=== PATIENT | female | born 1990 | race Caucasian/White ===

== ENCOUNTER 2017-03-10 17:43 | Emergency (ER) | payer OTHER ==
[~2017-03-10] VITALS: Ht 172.7 cm; Wt 97.2 kg
[~2017-03-10 17:43] MED LIST: ADVIL,NUPRIN,M200 MG PO; ATARAX,VISTARIL25 MG PO; CHANTIX1 MG PO; FAT BURNER PO; FISH OIL500 MG PO; HYDROXYZINE HCL25 MG PO; L-LYSINE500 M1 PO; MOTRIN800 MG PO; NAPROSYN500 MG PO; NOHOMEMEDS; PERCOCET 5/31 TABLET PO; PRENATAL ONE T1 EACH PO; PRENATAL TABLE1 EAC3 PO; SERTRALINE HCL50 MG PO; TUMS500 MG PO; TYLENOL COLD H1 EAC5 PO; TYLENOL EXTRA500 MG PO; TYLENOL PM1 CAPLET PO; VITAMIN D31000 UNI2 PO; ZOVIRAX400 MG PO
[2017-03-10 19:07] LABS: ADD MIUA? NO; BILIRUBIN NEGATIVE; BLOOD NEGATIVE; COLOR STRAW ((YELLOW)); GLUCOSE (STRIP) NEGATIVE; KETONES NEGATIVE; LEUKOCYTES NEGATIVE; NITRITE NEGATIVE; PROTEIN (STRIP) NEGATIVE; SPECIFIC GRAVITY 1.008 (1.000-1.030); UCUL ADDED? NO; UROBILINOGEN 0.2 MG/DL (0.2-1.0)
[2017-03-10 19:10] LABS: HEMATOCRIT 44.1 % (36.0-46.0); MCH 29.7 PG (29.0-34.0); MCHC 33.8 G/DL (30.0-36.0); MCV 87.8 FL (83-99); MEAN PLAT.VOLUME 9.7 uM^3 (9.5-12.4); PLATELET COUNT 287 K/uL (156-360); RBC DIS.WIDTH-SD 38.9 % (39-53); RED BLOOD COUNT 5.02 M/uL (3.80-5.20); WHITE BLOOD COUNT 7.2 K/uL (4.1-10.2)
[2017-03-10 19:28] LABS: CHLORIDE 108 mEq/L (99-109); POTASSIUM 4.2 mEq/L (3.7-5.4); SODIUM 139 mEq/L (136-147)
[2017-03-10 19:30] LABS: GLUCOSE 94 mg/dL (70-99)
[2017-03-10 19:32] LABS: ANION GAP 9 MEQ/L (2-14); TOTAL BILIRUBIN 0.4 mg/dL (0.0-1.0)
[2017-03-10 19:34] LABS: ALKALINE PHOSPHATASE 58 IU/L (3-129); GFR ESTIMATE (CALCULATED) > 59 mL/min/
[2017-03-10 19:35] LABS: UREA NITROGEN (BUN) 16 mg/dL (9-23)
[2017-03-10 19:37] LABS: LIPASE 21 U/L (1.0-51.0)
[2017-03-10 19:39] LABS: ERTH.SED.RATE 4 MM/HR (0-20)
[2017-03-10 19:43] LABS: QUANTITATIVE HCG < 4.0 MIU/ML
[2017-03-10 20:34] LABS: INTERNAL CONTROL VALID? YES; MONOSPOT (MONONUCLEOSIS SEROL) NEGATIVE
[2017-03-10 21:19] VITALS: BP 118/79
[2017-03-11 09:56] LABS: LYME DISEASE SEROLOGY SCREEN NEGATIVE (NEGATIVE)
[2017-03-11 11:58] LABS: ANTI-NUCLEAR AB SCRN/RFLX(ANA) NONREACTIVE (NONREACTIVE)
== END 2017-03-10 21:20 | disposition home or self-care (01) ==
LOC: EXP 17:43 → EME 17:43 → EXP 21:20
PROVIDERS: Physician Assistant
DX: R53.83 Other fatigue (principal); R51 Headache; M79.1 Myalgia; R10.9 Unspecified abdominal pain; Z87.442 Personal history of urinary calculi; F17.200 Nicotine dependence, unspecified, uncomplicated
CPT/HCPCS: 70450; 76705; 80053; 81003; 83690; 84443; 84702; 85027; 85651; 86038; 86308; 86618; 99281; 99284

== ENCOUNTER 2017-12-04 19:55 | Observation (INO) | payer OTHER ==
[~2017-12-04] VITALS: Ht 175.3 cm; Wt 99.9 kg
[2017-12-04 20:48] LABS: HEMATOCRIT 43.4 % (36.0-46.0); HEMOGLOBIN 15.3 G/DL (11.9-15.5); MCH 30.3 PG (29.0-34.0); MCHC 35.3 G/DL (30.0-36.0); MCV 85.9 FL (83-99); RBC DIS.WIDTH-CV 12.4 % (11.8-14.6); RBC DIS.WIDTH-SD 38.2 % (39-53); RED BLOOD COUNT 5.05 M/uL (3.80-5.20); WHITE BLOOD COUNT 6.8 K/uL (4.1-10.2)
[2017-12-04 20:55] LABS: ALBUMIN 4.6 g/dL (3.2-4.8); CHLORIDE 107 mEq/L (99-109); POTASSIUM 3.8 mEq/L (3.7-5.4); SODIUM 142 mEq/L (136-147)
[2017-12-04 20:57] LABS: GLUCOSE 103 mg/dL (70-99); TOTAL PROTEIN 7.6 g/dL (6.4-8.3)
[2017-12-04 21:01] LABS: ALKALINE PHOSPHATASE 76 IU/L (3-129); CREATININE 0.8 mg/dL (0.6-1.3); GFR ESTIMATE (CALCULATED) > 59 mL/min/
[2017-12-04 21:02] LABS: UREA NITROGEN (BUN) 10 mg/dL (9-23)
[2017-12-04 21:03] LABS: AST (GOT) 19 IU/L (2-34)
[2017-12-04 21:04] LABS: ALT (GPT) 22 IU/L (3-49)
[2017-12-04 21:11] LABS: FIBRINOGEN 254 mg/dL (150-450)
[2017-12-04 21:21] LABS: IMM.PLATELET FRACTION 26.8 (1-7); PLAT.SUFFICIENCY VERY DECREASED; PLATELET COUNT 6 K/uL (156-360)
[2017-12-04 21:27] LABS: TOTAL BILIRUBIN 0.7 mg/dL (0.0-1.0)
[2017-12-04 22:26] LABS: HEMATOCRIT 43.3 % (36.0-46.0); HEMOGLOBIN 15.2 G/DL (11.9-15.5); MCH 30.3 PG (29.0-34.0); MCHC 35.1 G/DL (30.0-36.0); MCV 86.4 FL (83-99); RBC DIS.WIDTH-CV 12.5 % (11.8-14.6); RBC DIS.WIDTH-SD 38.9 % (39-53); RED BLOOD COUNT 5.01 M/uL (3.80-5.20); WHITE BLOOD COUNT 6.6 K/uL (4.1-10.2)
[2017-12-04 22:40] LABS: ABS NEUTROPHIL COUNT 3.3; ANISOCYTOSIS 1+; ATYPICAL LYMPHOCYTE 5.3 %; EOSINOPHIL ABS CT 0.3; EOSINOPHILS 4.4 % (0-5.0); IMM.PLATELET FRACTION 19.8 (1-7); LYMPHOCYTES 34.5 % (15.0-45.0); MONOCYTES 5.3 % (0-9.0); PLAT.SUFFICIENCY VERY DECREASED; SEG.NEUTROPHILS 50.5 % (46.0-76.0)
[2017-12-04 22:41] LABS: PLATELET COUNT 6 K/uL (156-360)
[2017-12-04 23:48] VITALS: BP 121/80
[2017-12-05] VITALS (10 sets, daily range): BP systolic 109–143; BP diastolic 54–85
[2017-12-05 05:35] LABS: HEMATOCRIT 38.6 % (36.0-46.0); MCH 29.4 PG (29.0-34.0); MCHC 33.9 G/DL (30.0-36.0); MCV 86.7 FL (83-99); RBC DIS.WIDTH-CV 12.3 % (11.8-14.6); RED BLOOD COUNT 4.45 M/uL (3.80-5.20); WHITE BLOOD COUNT 8.7 K/uL (4.1-10.2)
[2017-12-05 05:36] LABS: HEMOGLOBIN 13.1 G/DL (11.9-15.5)
[2017-12-05 05:51] LABS: IMM.PLATELET FRACTION 17.5 (1-7)
[2017-12-05 06:01] LABS: PLATELET COUNT 11 K/uL (156-360)
[2017-12-05] MEDS ORDERED: NICOTINE PATCH1 EACH TD (12:32)
[2017-12-05] MEDS ORDERED: PREDNISONE10 MG PO (12:33)
== END 2017-12-05 16:10 | disposition home or self-care (01) ==
LOC: EME 19:55 → EDOF 22:23 → 3EAST 22:23 → ENRESERV 22:24 → 3EAST 23:48
PROVIDERS: Emergency Medicine; Hospitalist
PROC: 30233R1 Transfusion of Nonautologous Platelets into Peripheral Vein, Percutaneous Approach (ICD-10-PCS; principal; 2017-12-04)
DX: D69.6 Thrombocytopenia, unspecified (principal); F17.210 Nicotine dependence, cigarettes, uncomplicated; M25.50 Pain in unspecified joint; D69.3 Immune thrombocytopenic purpura; R53.83 Other fatigue
CPT/HCPCS: 80053; 85007; 85025; 85025 91; 85027; 85049; 85060; 85384; 85610; 85730; 86850; 86900; 86901; 99281; 99285; G0378; J1200; J1566; J2930; J7512; P9035; P9037

== ENCOUNTER 2018-02-24 20:58 | Emergency (ER) | payer OTHER ==
[~2018-02-24] VITALS: Ht 175.3 cm; Wt 104.6 kg
[~2018-02-24 20:58] MED LIST changes: +NICOTINE PATCH1 EACH TD; +PREDNISONE10 MG PO
[2018-02-24] MEDS ORDERED: FLONASE16 G1 BOTH NARES (22:41)
[2018-02-24] MEDS ORDERED: BENADRYL ALLERG25 MG PO (22:41)
[2018-02-24 22:57] VITALS: BP 121/99
== END 2018-02-24 22:58 | disposition home or self-care (01) ==
LOC: EME 20:58
DX: J30.9 Allergic rhinitis, unspecified (principal); R53.81 Other malaise; R53.83 Other fatigue; F32.9 Major depressive disorder, single episode, unspecified; Z87.442 Personal history of urinary calculi; K21.9 Gastro-esophageal reflux disease without esophagitis; F41.9 Anxiety disorder, unspecified; F17.200 Nicotine dependence, unspecified, uncomplicated
CPT/HCPCS: 99281; 99283